=== PATIENT | female | born 1945 | race Caucasian/White ===

== ENCOUNTER → 2020-02-07 15:18 | Outpatient (BNVA) | payer MEDICARE, SELFPAY | PROVIDERS: Family Provider Nurse Practitioner; PCP Nurse Practitioner; Visit Provider Nurse Practitioner | DX: M25.511 Pain in right shoulder (principal); I10 Essential (primary) hypertension; E55.9 Vitamin D deficiency, unspecified; E78.5 Hyperlipidemia, unspecified | CPT/HCPCS: 73030; 80053; 80061; 82306; 84443 ==

== ENCOUNTER 2020-05-29 06:00 | Outpatient (RCR) | payer MEDICARE, SELFPAY | END 2020-06-22 23:59 | disposition home or self-care (01) | LOC: TPT 06:00 | PROVIDERS: PCP Nurse Practitioner; Referring Provider Nurse Practitioner; Visit Provider Nurse Practitioner | DX: M19.90 Unspecified osteoarthritis, unspecified site (principal) | CPT/HCPCS: 97110; 97140; 97161 ==

== ENCOUNTER 2020-06-23 06:00 | Outpatient (RCR) | payer MEDICARE, SELFPAY | END 2020-07-22 23:59 | disposition home or self-care (01) | LOC: TPT 06:00 | PROVIDERS: PCP Nurse Practitioner; Referring Provider Nurse Practitioner; Visit Provider Nurse Practitioner | DX: M19.90 Unspecified osteoarthritis, unspecified site (principal) | CPT/HCPCS: 97110; 97140 ==

== ENCOUNTER 2020-07-23 06:00 | Outpatient (RCR) | payer MEDICARE, SELFPAY | END 2020-08-19 23:00 | disposition home or self-care (01) | LOC: TPT 06:00 | PROVIDERS: PCP Nurse Practitioner; Referring Provider Nurse Practitioner; Visit Provider Nurse Practitioner | DX: M19.90 Unspecified osteoarthritis, unspecified site (principal) | CPT/HCPCS: 97110; 97140 ==

== ENCOUNTER → 2020-08-06 10:48 | Outpatient (BNVA) | payer MEDICARE, SELFPAY | PROVIDERS: PCP Nurse Practitioner; Visit Provider Nurse Practitioner | DX: E55.9 Vitamin D deficiency, unspecified (principal); E78.2 Mixed hyperlipidemia; I10 Essential (primary) hypertension; J30.2 Other seasonal allergic rhinitis | CPT/HCPCS: 80053; 80061; 82306; 84443; 85025 ==

== ENCOUNTER → 2020-09-16 13:05 | Outpatient (BNVA) | payer MEDICARE, SELFPAY | PROVIDERS: PCP Nurse Practitioner; Visit Provider Nurse Practitioner Family | DX: Z20.828 Contact with and (suspected) exposure to other viral communicable diseases (principal) | CPT/HCPCS: 87635 ==

== ENCOUNTER → 2020-12-03 12:08 | Outpatient (BNVA) | payer MEDICARE, SELFPAY | PROVIDERS: PCP Nurse Practitioner; Visit Provider Nurse Practitioner | DX: I10 Essential (primary) hypertension (principal); E78.2 Mixed hyperlipidemia; F41.8 Other specified anxiety disorders | CPT/HCPCS: 80048 ==

== ENCOUNTER → 2021-03-07 08:11 | Outpatient (BNVA) | payer MEDICARE, SELFPAY | PROVIDERS: PCP Nurse Practitioner; Visit Provider Nurse Practitioner | DX: E78.2 Mixed hyperlipidemia (principal); I10 Essential (primary) hypertension; E55.9 Vitamin D deficiency, unspecified | CPT/HCPCS: 80053; 80061; 82306; 84443 ==

== ENCOUNTER → 2021-10-29 08:23 | Outpatient (BNVA) | payer MEDICARE, SELFPAY | PROVIDERS: PCP Nurse Practitioner; Visit Provider Nurse Practitioner | DX: E55.9 Vitamin D deficiency, unspecified (principal); I10 Essential (primary) hypertension; J30.2 Other seasonal allergic rhinitis | CPT/HCPCS: 80053; 80061; 82306; 84443; 85025 ==

== ENCOUNTER 2021-11-19 10:32 | Outpatient (CLI) | payer MEDICARE, SELFPAY ==
--- NOTE | 2021-11-19 10:15 | US_ITS ---
WS: [id number] RENAL ULTRASOUND HISTORY: I10 - Essential (primary) hypertension COMPARISON: None available. TECHNIQUE: 2-D and color Doppler imaging of the kidney submitted. Right kidney: 9.3 cm x 4.4 cm x 4.8 cm. Normal echogenicity with no hydronephrosis or mass. Left kidney: 14.4 cm x 7.7 cm x 6.2 cm. Enlarged kidney secondary to severe hydronephrosis. There is diffuse cortical thinning suggesting thi s is a watermaster hydronephrosis. No ureteral jets are identified. Aorta: Normal. Urinary Bladder: Normally distended. US/US renal BI* [id number] IMPRESSION: 1. Severe LEFT hydroureteronephrosis. Favor this is probably a chronic hydrone phrosis due to the severe LEFT cortical thinning. Consider follow-up noncontras t CT abdomen and pelvis to evaluate etiology of the obstruction. 2. Normal RIGHT kidney.
== END 2021-11-19 10:33 | disposition home or self-care (01) ==
PROVIDERS: PCP Nurse Practitioner; Visit Provider Nurse Practitioner
DX: I10 Essential (primary) hypertension (principal); N13.30 Unspecified hydronephrosis
CPT/HCPCS: 76770

== ENCOUNTER 2021-12-17 09:29 | Outpatient (CLI) | payer MEDICARE, SELFPAY ==
[2021-12-17] MEDS: iohexol 300 mg/mL 50 mL Btl PO (10:54)
--- NOTE | 2021-12-17 11:00 | CT_ITS ---
WS: [id number] CT ABDOMEN PELVIS TECHNIQUE: Noncontrast CT of the abdomen and pelvis with coronal and sagittal reformatted images. CLINICAL INFORMATION: N13.30 - Unspecified hydronephrosis COMPARISON: Ultrasound renal November 19, 2021 DLP: 677.[address] scans at [facility] use at least one of these dose optimization techniques: automated e xposure control; mA and/or kV adjustment per patient size (includes targeted exams where dose is matc hed to clinical indication); or iterative reconstruction. FINDINGS: Lung bases are well aerated. Cholelithiasis. Moderate esophageal hiatal hernia. Advanced chronic appe aring LEFT hydronephrosis with marked cortical thinning. Only tiny remnant of residual cortical paren chyma. LEFT kidney is likely nonfunctioning. LEFT ureter is not definitely visualized but no evidence of ureterectasis. LEFT ureter is likely atretic. Small LEFT adrenal adenoma measuring 15 mm. Additional small RIGHT adrenal adenoma measuring 11 mm. N o hydronephrosis in RIGHT kidney. Normal RIGHT ureter. Noncontrast liver is normal. Cholelithiasis. Fatty atrophy of the pancreas. Noncontrast spleen is nor mal. Normal caliber abdominal aorta. Mild aortic calcification. Tiny fat-containing umbilical hernia. 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 Lumbar scoliosis convex LEFT. Advanced multilevel degenerative d isc disease with vacuum disc phenomenon. CT/CT abdomen pelvis wo con [id number] IMPRESSION: 1. Advanced chronic appearing long-standing LEFT hydronephrosis with cystic re placement of the LEFT kidney. Only a tiny amount of peripheral residual parench yma. LEFT kidney is likely nonfunctioning. LEFT ureter is not definitely visual ized although no evidence of ureterectasis. 2. Normal noncontrast RIGHT kidney. No hydronephrosis. 3. Cholelithiasis. 4. Moderate esophageal hiatal hernia. 5. Small bilateral adrenal adenomas. 6. Lumbar scoliosis with multilevel degenerative disc disease.
== END 2021-12-17 09:30 | disposition home or self-care (01) ==
LOC: RAD 09:31
PROVIDERS: PCP Nurse Practitioner; Visit Provider Nurse Practitioner
DX: N13.30 Unspecified hydronephrosis (principal); M41.86 Other forms of scoliosis, lumbar region; K44.9 Diaphragmatic hernia without obstruction or gangrene; K80.20 Calculus of gallbladder without cholecystitis without obstruction
CPT/HCPCS: 74176

== ENCOUNTER → 2022-04-08 10:00 | Outpatient (BNVA) | payer MEDICARE, SELFPAY | PROVIDERS: PCP Nurse Practitioner; Visit Provider Internal Medicine Cardiovascular Disease | DX: I10 Essential (primary) hypertension (principal); Q24.9 Congenital malformation of heart, unspecified; Z87.891 Personal history of nicotine dependence | CPT/HCPCS: 99204 ==

== ENCOUNTER → 2022-05-12 16:19 | Outpatient (BNVA) | payer MEDICARE, SELFPAY | PROVIDERS: PCP Family Medicine; Visit Provider Family Medicine | DX: Z76.89 Persons encountering health services in other specified circumstances (principal); I12.9 Hypertensive chronic kidney disease with stage 1 through stage 4 chronic kidney disease, or unspecified chronic kidney disease; N18.4 Chronic kidney disease, stage 4 (severe) | CPT/HCPCS: 80053; 80061; 81000; 82043; 82310; 82652; 83735; 83970; 84100; 84439; 84443; 85025 ==

== ENCOUNTER 2022-06-12 09:56 | Outpatient (CLI) | payer MEDICARE, SELFPAY ==
--- NOTE | 2022-06-12 10:15 | USCV_ITS ---
Peyton Lucas Age: 76 Gender: F : 1945 Exam Date: 06/12/2022 10:24 Ordering Phys: Susan Easley MD ([email or web address]) Technologist: Avelina Malik [place] [facility] [place]: Shortness of breath BP: 120 / 72 HR: 60 Rhythm: Sinus Technical Quality: Fair MEASUREMENTS (Male / Female) Normal Values 2D ECHO LV Diastolic Diameter PLAX 4.6 cm 4.2 - 5.9 / 3.9 - 5.3 cm LV Systolic Diameter PLAX 2.6 cm IVS Diastolic Thickness 1.2 cm 0.6 - 1.0 / 0.6 - 0.9 cm IVS Systolic Thickness 1.5 cm LVPW Diastolic Thickness 1.1 cm 0.6 - 1.0 / 0.6 - 0.9 cm LVPW Systolic Thickness 2.3 cm LVOT Diameter 2.1 cm LV Ejection Fraction 2D Teich 73.2 % LV Ejection Fraction MOD 2C 26.1 % LV Ejection Fraction 2C AL 27.0 % LA Diameter 2.6 cm LA Width 3.9 cm LA Height 4.8 cm RA Width 3.4 cm RA Height 4.2 cm Aorta at Sinotubular Diameter 3.0 cm IVC Diameter 1.3 cm M-MODE MV E Point Septal Separation 0.8 cm DOPPLER AV Peak Velocity 135.0 cm/s LVOT Peak Velocity 94.0 cm/s AV Area Cont Eq vti 2.7 cm squared AV Area Cont Eq pk 2.3 cm squared MV Peak Velocity 121.0 cm/s MV Area PHT 3.0 cm squared Mitral E to A Ratio 0.7 MV E' Velocity 39.5 cm/s Mitral E to MV E' Ratio 7.9 Mitral E to LV E' Lateral Ratio 6.7 Mitral E to LV E' Septal Ratio 9.6 TR Peak Velocity 178.3 cm/s TR Peak Gradient 12.7 mmHg Right Atrial Pressure 3.0 mmHg Pulmonary Artery Systolic Pressu 15.7 mmHg PV Peak Velocity 181.0 cm/s RV Acceleration Time 0.1 s RV Ejection Time 0.4 s RV AcT/ET 0.2 FINDINGS Left Ventricle Normal left ventricular size, systolic function and wall thickness, with no regional wall motion abnormalities. Left ventricular ejection fraction is estimated at 60 %. Grade I diastolic dysfunction (abnormal relaxation filling pattern), normal to mildly elevated filling pressures. Abnormal septal motion. Right Ventricle Normal right ventricular size and systolic function. Right ventricular systolic pressure 23 mmHg. Right Atrium Normal right atrial size. Aneurysmal interatrial septum. Left Atrium Normal left atrial size. Mitral Valve Mild mitral annular calcification. Mildly thickened mitral valve. No mitral valve stenosis. Aortic Valve Structurally normal trileaflet aortic valve. No aortic valve stenosis. Moderate aortic valve regurgitation. Tricuspid Valve Structurally normal tricuspid valve. No tricuspid valve stenosis. Trace to mild tricuspid valve regurgitation. Pulmonic Valve Structurally normal pulmonic valve. No pulmonary valve stenosis. Mild pulmonary valve regurgitation. Pericardium No pericardial effusion. Aorta Normal size aortic root and proximal ascending aorta. IVC Normal IVC dimension with >50% respiratory change of the inferior vena cava. CONCLUSIONS 1. Normal left ventricular size, systolic function and wall thickness, with no regional wall motion abnormalities. Left ventricular ejection fraction is estimated at 60 %. Grade I diastolic dysfunction (abnormal relaxation filling pattern), normal to mildly elevated filling pressures. 2. Normal right ventricular size and systolic function 3. Moderate aortic valve regurgitation. 4. No prior similar studies to compare. Susan Easley MD (Electronically Signed) Final Date: 16 June 2022 13:04 S
== END 2022-06-12 09:57 | disposition home or self-care (01) ==
PROVIDERS: PCP Family Medicine; Visit Provider Internal Medicine Cardiovascular Disease
DX: R06.02 Shortness of breath (principal); I35.1 Nonrheumatic aortic (valve) insufficiency
CPT/HCPCS: 93306

== ENCOUNTER 2022-06-12 10:06 | Outpatient (CLI) | payer MEDICARE, SELFPAY ==
--- NOTE | 2022-06-12 10:27 | XR_ITS ---
WS: [id number] Cervical spine, 3 views, 06/12/2022 Clinical Data: Neck pain, decreased ROM Comparison: None. Findings: No compression fractures are seen. There is disc narrowing at C4-C5, C5-C6, C6-C7 and C7-T1 . There is accompanying osteoarthritic spurring from C4 through T1. There is no prevertebral soft tis lito swelling. The odontoid is unremarkable. The lung apices are normal. There is soft tissue calcific ation of the level of both carotid artery bifurcations. XR/XR cervical spine 3V* [id number] Impression: Multilevel degenerative disc narrowing C4-5 to C7-T1 with osteoarthritic spurri ng.
== END 2022-06-12 10:07 | disposition home or self-care (01) ==
PROVIDERS: PCP Family Medicine; Visit Provider Family Medicine
DX: M54.2 Cervicalgia (principal); R29.898 Other symptoms and signs involving the musculoskeletal system; M48.02 Spinal stenosis, cervical region
CPT/HCPCS: 72040

== ENCOUNTER → 2022-07-10 11:39 | Outpatient (BNVA) | payer MEDICARE, SELFPAY | PROVIDERS: PCP Family Medicine; Visit Provider Family Medicine | DX: R19.7 Diarrhea, unspecified (principal) | CPT/HCPCS: 82270; 87177; 87209; 87493; 87506 ==

== ENCOUNTER 2022-08-17 11:19 | Emergency (ER) | payer MEDICARE, SELFPAY ==
[2022-08-17] VITALS (37 sets, daily range): BP systolic 102–134; BP diastolic 62–68; PULSE 67–84; RESP 14–18; TEMP 36.7; O2SAT 94–100; BMI 28.5
--- NOTE | 2022-08-17 14:20 | USCV_ITS ---
Peyton Lucas Age: 76 Gender: F : 1945 Exam Date: 08/17/2022 14:42 Ordering Phys: Robinson Murray MD Technologist: LUANA [place] [facility] [place]ication: RLE PAIN AND SWELLING HISTORY: Lower extremity swelling. Lower extremity pain. PROCEDURES: Venous duplex imaging was performed in only the right lower extremity. The following venous structures were evaluated: common femoral vein, profunda vein, proximal portion of the greater saphenous vein, superficial femoral vein, and the popliteal vein. In addition, the posterior tibial and peroneal trunk were evaluated. Serial compression, augmentation maneuvers, and spectral Doppler flow evaluation were performed. FINDINGS: No evidence of DVT seen in any vessel visualized at this time. CONCLUSIONS No evidence of right lower extremity DVT. Complex popliteal cyst measuring 2.0 x 2.4 x 5.2cm Maxwell Palacios MD (Electronically Signed) Final Date: 17 August 2022 17:11 S
--- NOTE | 2022-08-17 14:20 | XRR_ITS ---
PROCEDURE INFORMATION: Exam: XR Right Knee Exam date and time: 08/17/2022 2:34 PM Age: 76 years old Clinical indication: Pain; Knee; Right; Additional info: Swelling, pain TECHNIQUE: Imaging protocol: Radiologic exam of the Right knee. Views: 3 views. COMPARISON: No relevant prior studies available. FINDINGS: Bones/joints: Severe tricompartmental degenerative changes. No acute fracture. No dislocation. Soft tissues: Normal. XR/XR knee RT 3V* [id number] IMPRESSION: No acute findings.
--- NOTE | 2022-08-17 14:22 | W.ED.EXTPRO ---
HPI - Extremity Problem General: Chief complaint: Extremity Injury, Lower Stated complaint: Right leg swelling Time Seen by Provider: 08/17/22 13:41 History of Present Illness: Patient comes in with right knee and lower leg swelling and pain that she states started 3 days ago. States no trauma. States she does have degeneration in that knee joint and knows she needs replacement. On physical exam she has swelling of her right knee with no overlying heat or significant heat to palpation. Right leg is neurovascularly intact with palpable pulses. She does have some swelling of that right lower leg when compared to the left. Associated symptoms: Deny chest pain, fever(s) or rash Review of Systems Const: Denies: fever(s) or body aches Eyes: Denies: change in vision or blurry vision ENMT: Denies: throat pain or odynophagia Card: Denies: chest pain or palpitations Resp: Denies: dyspnea or productive cough GI: Denies: abdominal pain, nausea or vomiting : Denies: flank pain or dysuria Musc: Denies: neck pain or back pain Skin/Breast: Denies: rash or pruritus Neuro: Denies: headache(s) or numbness in extremities Psych: Denies: anxiety or change in appetite Endo: Denies: polyuria or excessive sweating PFSH ED PFSH: Medical History Esophageal hiatal hernia Heart murmur Hydronephrosis of left kidney Hypertension Mixed hyperlipidemia Osteoarthritis (arthritis due to wear and tear of joints) Sinusitis, bacterial Vitamin D deficiency Surgical History History of left knee replacement History of right hip replacement S/P coronary angiogram S/P heart valve repair Family History Mother Heart disease CHF (congestive heart failure) Brother Myocardial infarction Other Hypertension Social History Smoking and tobacco status: never smoked Second hand smoke exposure: No Smoking risk assessment/counseling performed?: No Alcohol intake: never Desire information about alcohol rehabilitation?: No Counseling given: No Desire information about substance/drug rehabilitation?: No Counseling given: No Adopted: No Caregiver/support person: No Lives independently: Yes Household members: none Housing: House Marital status: service: No Current occupational status: employed Current occupation: [employer] History of recent travel: No Current gender identity: Female Female Reproductive History: Spontaneous abortions: No Physical Exam Const: COMMON NORMALS: no acute distress, patient oriented x3, healthy appearing and alert HENMT: COMMON NORMALS: normocephalic and atraumatic HEAD & SCALP: normocephalic and atraumatic Eye: COMMON NORMALS: Equal, round and reactive pupils present and EOMs intact bilaterally PUPIL: Yes Equal, round and reactive pupils present Neck/C-Spine: COMMON NORMALS: full ROM and supple Resp: COMMON NORMALS: normal respiratory effort, No retractions and No use of accessory muscles Cardio: COMMON NORMALS: regular rate and regular rhythm RATE: regular rate RHYTHM: regular rhythm GI: COMMON NORMALS: Normal to inspection, nondistended, normoactive bowel sounds present, Soft to palpation and non-tender PALPATION: Yes Soft to palpation Back/Pelvis: COMMON NORMALS: thoracic and lumbar spine normal to inspection and no thoracic nor lumbar tenderness Extremity: OTHER: swelling of her right knee with no overlying heat or significant heat to palpation. Right leg is neurovascularly intact with palpable pulses. She does have some swelling of that right lower leg when compared to the left. Neuro: COMMON NORMALS: patient oriented x3 SENSORIUM/ORIENTATION: Yes alert Psych: COMMON NORMALS: mental status grossly normal and cooperative Skin: COMMON NORMALS: no rashes or lesions noted and no wounds GENERAL SKIN EXAM: no rashes or lesions noted Course Vital Signs: Vital signs: Vital Signs Temperature 98.0 F 08/17/22 12:36 Pulse Rate 68 08/17/22 13:46 Respiratory Rate 14 08/17/22 12:36 Blood Pressure 102/62 08/17/22 13:45 Pulse Oximetry 99 08/17/22 12:36 Oxygen Delivery Me thod 08/17/22 12:36 MDM - Extremity (Nontraumatic) Medical Decision Making Patient comes in with right knee and lower leg swelling and pain that she states started 3 days ago. States no trauma. States she does have degeneration in that knee joint and knows she needs replacement. On physical exam she has swelling of her right knee with no overlying heat or significant heat to palpation. Right leg is neurovascularly intact with palpable pulses. She does have some swelling of that right lower leg when compared to the left. Will check x-ray, ultrasound, and reassess. On reassessment I talked to the patient about the test results. Will encourage her to elevate, ice, and use Tylenol for the knee. Will discharge home at this time with precautions to return for worsening or changing symptoms. Lab Data Radiology Impressions Knee X-Ray 08/17/22 14:20 IMPRESSION: No acute findings. Discharge Plan Discharge Patient Disposition: Home Clinical Impression: Mckeon cyst Condition: Stable Prescriptions: No Action magnesium oxide 400 mg (241.3 mg magnesium) tablet 800 mg PO DAILY famotidine 20 mg tablet 20 mg PO BID PRN fenofibrate nanocrystallized [Tricor] 145 mg tablet 145 mg PO DAILY Qty: 90 0RF calcitriol 0.25 mcg capsule 0.25 mcg PO DAILY valsartan 320 mg tablet 160 mg PO DAILY tumeric PO coenzyme Q10 [Co Q-10] 100 mg capsule 100 mg PO DAILY fluticasone propionate [Flonase Allergy Relief] 50 mcg/actuation spray,suspension 2 spray INTRANASAL DAILY PRN Rx Instructions: administer into each nostril amlodipine 5 mg tablet 7.5 mg PO DAILY Qty: 135 2RF Folbee Plus 5 mg tablet 1 tab PO DAILY Qty: 90 1RF ergocalciferol (vitamin D2) 1,250 mcg (50,000 unit) capsule 50,000 unit PO .COMPLEX Qty: 6 0RF Rx Instructions: 50,000 units PO TAKE ON THE 1ST AND 16TH; cyanocobalamin (vitamin B-12) 1,000 mcg capsule 1,000 mcg PO DAILY Qty: 90 0RF diphenoxylate-atropine 2.5-0.025 mg tablet 2 tab PO Q8H Qty: 90 0RF Discharge Orders: Discharge ED (Routine); Ordered 08/17/22 Ordered By: Robinson Murray Referrals: Geeta Townsend MD [Primary Care Provider] - Patient Instructions: Mckeon Cyst (ED) Coding Level of Care Code ED [employer] [employer] for Chg Fwd Exam Comprehensive
== END 2022-08-17 16:38 | disposition home or self-care (01) ==
PROVIDERS: Emergency Provider Emergency Medicine; PCP Family Medicine
DX: M71.21 Synovial cyst of popliteal space [Baker], right knee (principal); I10 Essential (primary) hypertension; E78.2 Mixed hyperlipidemia
CPT/HCPCS: 73562; 93971; 99283

== ENCOUNTER → 2022-09-30 11:06 | Outpatient (BNVA) | payer MEDICARE, SELFPAY | PROVIDERS: PCP Family Medicine; Visit Provider Family Medicine | DX: R19.7 Diarrhea, unspecified (principal) | CPT/HCPCS: 82150; 83690 ==

== ENCOUNTER → 2022-10-08 11:01 | Outpatient (BNVA) | payer MEDICARE, SELFPAY | PROVIDERS: PCP Family Medicine; Visit Provider Internal Medicine Cardiovascular Disease | DX: Q24.9 Congenital malformation of heart, unspecified (principal); I10 Essential (primary) hypertension; E78.2 Mixed hyperlipidemia; K44.9 Diaphragmatic hernia without obstruction or gangrene | CPT/HCPCS: 99214; Q3014 ==

== ENCOUNTER → 2022-12-23 12:00 | Outpatient (BNVA) | payer MEDICARE, SELFPAY | PROVIDERS: PCP Family Medicine; Visit Provider Family Medicine | DX: F41.8 Other specified anxiety disorders (principal); Z13.6 Encounter for screening for cardiovascular disorders; K52.832 Lymphocytic colitis; Q24.9 Congenital malformation of heart, unspecified; I12.9 Hypertensive chronic kidney disease with stage 1 through stage 4 chronic kidney disease, or unspecified chronic kidney disease; N18.4 Chronic kidney disease, stage 4 (severe) | CPT/HCPCS: 80053; 80061; 84443; 85025; 85610 ==

== ENCOUNTER 2023-01-19 12:22 | Outpatient (CLI) | payer MEDICARE, SELFPAY ==
--- NOTE | 2023-01-19 12:40 | MM_ITS ---
WS: [id number] BILATERAL 3D TOMOSYNTHESIS DIGITAL SCREENING MAMMOGRAPHY WITH CAD CLINICAL INFORMATION: SCREEN HISTORY: Screening mammogram. No current complaints. COMPARISON: 2017 TECHNIQUE: Bilateral CC and MLO views. FINDINGS: Scattered fibroglandular densities bilaterally. No suspicious focal mass, asymmetry, calcifications, or architectural distortion. No evidence of malignancy. Punctate and lucent centered calcifications. Vascular calcifications. MM/[place] [id number] IMPRESSION: BI-RADS: 2-Benign FOLLOW UP: 1 Year Follow-up Recommend return to annual screening mammography.
== END 2023-01-19 12:23 | disposition home or self-care (01) ==
LOC: RAD 12:26
PROVIDERS: PCP Family Medicine; Visit Provider Family Medicine
DX: Z12.31 Encounter for screening mammogram for malignant neoplasm of breast (principal)
CPT/HCPCS: 77063; 77067

== ENCOUNTER → 2023-03-08 12:05 | Outpatient (BNVA) | payer MEDICARE, SELFPAY | PROVIDERS: PCP Family Medicine; Visit Provider Internal Medicine Gastroenterology | DX: K52.9 Noninfective gastroenteritis and colitis, unspecified (principal); K52.832 Lymphocytic colitis | CPT/HCPCS: 82784; 83516 ==

== ENCOUNTER 2023-04-16 14:48 | Outpatient (CLI) | payer MEDICARE, SELFPAY ==
--- NOTE | 2023-04-16 15:04 | US_ITS ---
WS: [id number] RENAL ULTRASOUND HISTORY: STAGE 3B CHRONIC KIDNEY DZ COMPARISON: 11/19/2021 TECHNIQUE: 2-D and color Doppler imaging of the kidney submitted. Right kidney: 11.5 cm x 5.1 cm x 5.1 cm. Cortex: 1.5 cm Normal echogenicity with no hydronephrosis or mass. Left kidney: 13.9 cm x 9.2 cm x 7.7 cm. Cortex: Marked thinning Abnormal LEFT kidney. LEFT renal pelvis is markedly dilated with thinning of the cortex. Normal renal structures not identified. Similar findings were noted on the prior study. Aorta: Normal. Urinary Bladder: Nondistended. Patient voided just prior to this exam. IMPRESSION: 1. Chronic severe LEFT hydronephrosis. Normal LEFT kidney is not identified. 2. Normal RIGHT kidney.
== END 2023-04-16 14:49 | disposition home or self-care (01) ==
PROVIDERS: PCP Family Medicine; Visit Provider Internal Medicine Nephrology
DX: N18.32 Chronic kidney disease, stage 3b (principal); N13.30 Unspecified hydronephrosis
CPT/HCPCS: 76770

== ENCOUNTER → 2023-06-03 15:21 | Outpatient (BNVA) | payer MEDICARE, SELFPAY | PROVIDERS: PCP Family Medicine; Referring Provider Nurse Practitioner Family; Visit Provider Dermatology | DX: L82.0 Inflamed seborrheic keratosis (principal); D18.01 Hemangioma of skin and subcutaneous tissue; L81.4 Other melanin hyperpigmentation; D48.5 Neoplasm of uncertain behavior of skin | CPT/HCPCS: 11102; 17110; 99203 ==

== ENCOUNTER → 2023-07-08 13:58 | Outpatient (BNVA) | payer MEDICARE, SELFPAY | PROVIDERS: PCP Family Medicine; Visit Provider Internal Medicine Cardiovascular Disease | DX: I10 Essential (primary) hypertension (principal); Q24.9 Congenital malformation of heart, unspecified | CPT/HCPCS: 99214 ==

== ENCOUNTER 2023-08-21 15:23 | Emergency (ER) | payer OTHER, MEDICARE, SELFPAY ==
[2023-08-21 15:25] VITALS: BP 174/81; PULSE 68; RESP 18; TEMP 36.6; O2SAT 98; BMI 32.0
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
[2023-08-21 16:16] LABS: Basophils % 0.4 %; Eosinophils # 0.1 10^3/uL (0.0-0.8); Eosinophils % 1.9 %; Hematocrit 35.7 % (36-47); Lymphocytes % 44.9 %; Mean Corpuscular HGB Conc 32.5 g/dL (30-55); Mean Corpuscular Hemoglobin 28.9 pg (27-33); Mean Platelet Volume 9.5 fL (7.4-10.4); Monocytes # 0.7 10^3/uL (0.2-0.9); Neutrophils # 2.87 10^3/uL (1.8-7.7); Neutrophils % 42.7 %; Nucleated Red Blood Cells % 0 %; Platelet Count 300 10^3/cmm (157-399); Red Blood Count 4.01 10^6/uL (3.85-5.65); Red Cell Distribution Width 13.4 % (12.1-15.1); White Blood Count 6.73 10^3/uL (3.29-11.43)
[2023-08-21 16:31] LABS: Alanine Aminotransferase 18 U/L (0-33); Albumin Level 4.3 g/dL (3.5-5.2); Alkaline Phosphatase 80 U/L (35-105); Anion Gap 16.2 (5-19); Aspartate Amino Transferase 30 U/L (0-32); Blood Urea Nitrogen 31 mg/dL (8-23); Calcium 10.6 mg/dL (8.5-10.5); Carbon Dioxide 21 mmol/L (22-29); Chloride 103 mmol/L (98-107); Globulin 2.8 g/dL (1.3-4.6); Glucose 102 mg/dL (65-115); Osmolality Calculated 289 mOsm/kg (285-295); Potassium 4.2 mmol/L (3.5-5.1); Sodium 136 mmol/L (136-145); Total Bilirubin 0.3 mg/dL (0.15-1.2); Total Protein 7.1 g/dL (6.6-8.7)
[2023-08-21 17:17] LABS: Add Urine Microscopic? YES; Bacteria Urine TRACE /hpf; Bilirubin Urine Neg (Negative); Blood Urine Neg (Negative); Glucose Urine UA Norm (Normal); Ketones Urine Negative (Negative); Leukocyte Esterase Urine Trace (Negative); Nitrate Urine Negative (Negative); Protein Urine Neg (Negative); Squamous Epithelial Cell Urine 0-4 /hpf (0-5); Urine Appearance Clear (CLEAR); Urine Color Yellow (Yellow); Urobilinogen Urine Norm (Negative); pH Urine 6.5 (5-7)
[2023-08-21 17:18] LABS: Add Urine Culture? No
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
--- NOTE | 2023-08-23 08:25 | DCPLANNER ---
Message was sent to ortho on 08/23 at 0879. Clinic to contact patient
== END 2023-08-21 18:58 | disposition home or self-care (01) ==
PROVIDERS: Family Medicine; Emergency Provider Emergency Medicine; PCP Nurse Practitioner
DX: S82.141A Displaced bicondylar fracture of right tibia, initial encounter for closed fracture (principal); I10 Essential (primary) hypertension; E78.2 Mixed hyperlipidemia; Z96.652 Presence of left artificial knee joint; Z96.641 Presence of right artificial hip joint; V89.2XXA Person injured in unspecified motor-vehicle accident, traffic, initial encounter
CPT/HCPCS: 29530; 70450; 70486; 72125; 73130; 73562; 73700; 80053; 81001; 85025; 99284

== ENCOUNTER 2023-08-27 06:00 | Outpatient (CLI) | payer MEDICARE, SELFPAY | END 2023-08-27 06:01 | disposition home or self-care (01) | LOC: SPT 09-02 14:05 | PROVIDERS: PCP Nurse Practitioner; Visit Provider Student in an Organized Health Care Education/Training Program | DX: Z46.89 Encounter for fitting and adjustment of other specified devices (principal); S82.114D Nondisplaced fracture of right tibial spine, subsequent encounter for closed fracture with routine healing; X58.XXXD Exposure to other specified factors, subsequent encounter | CPT/HCPCS: 27530; 97760; 99204; L1832 ==

== ENCOUNTER → 2023-08-27 09:09 | Outpatient (BNVA) | payer MEDICARE, SELFPAY | PROVIDERS: PCP Nurse Practitioner; Visit Provider Student in an Organized Health Care Education/Training Program | DX: S82.141A Displaced bicondylar fracture of right tibia, initial encounter for closed fracture; V89.2XXA Person injured in unspecified motor-vehicle accident, traffic, initial encounter | CPT/HCPCS: 73562 ==

== ENCOUNTER → 2023-09-17 10:10 | Outpatient (BNVA) | payer MEDICARE, SELFPAY | PROVIDERS: PCP Family Medicine; Visit Provider Student in an Organized Health Care Education/Training Program | DX: S82.141A Displaced bicondylar fracture of right tibia, initial encounter for closed fracture (principal); X58.XXXA Exposure to other specified factors, initial encounter; M17.11 Unilateral primary osteoarthritis, right knee | CPT/HCPCS: 73562; 99213 ==

== ENCOUNTER → 2023-10-07 13:12 | Outpatient (BNVA) | payer MEDICARE, SELFPAY | PROVIDERS: PCP Family Medicine; Visit Provider Physician Assistant | DX: S82.141A Displaced bicondylar fracture of right tibia, initial encounter for closed fracture (principal); X58.XXXA Exposure to other specified factors, initial encounter; M17.11 Unilateral primary osteoarthritis, right knee | CPT/HCPCS: 73590; 99213 ==

== ENCOUNTER → 2023-10-21 10:59 | Outpatient (BNVA) | payer MEDICARE, SELFPAY | PROVIDERS: PCP Family Medicine; Visit Provider Physician Assistant | DX: S82.141A Displaced bicondylar fracture of right tibia, initial encounter for closed fracture (principal); X58.XXXA Exposure to other specified factors, initial encounter; M17.11 Unilateral primary osteoarthritis, right knee | CPT/HCPCS: 73560; 73565; 73590; 99213 ==

== ENCOUNTER 2023-10-25 12:44 | Outpatient (CLI) | payer MEDICARE, SELFPAY ==
--- NOTE | 2023-10-25 13:00 | US_ITS ---
WS: [id number] RENAL ULTRASOUND HISTORY: CHRONIC RENAL FAILURE COMPARISON: 04/16/2023 TECHNIQUE: 2-D and color Doppler imaging of the kidney submitted. Right kidney: 8.6 cm x 4.2 cm x 5.0 cm. Cortex: 1.0 cm Mild atrophy with no hydronephrosis. No solid mass. Left kidney: 9.2 cm x 7.7 cm x 4.6 cm. Cortex: Not visible. Massive dilatation of the renal pelvis. Calyceal dilatation. Longstanding chronic hydronephrosis has been previously described. Progressive atrophy of the renal cortex. It is very difficult to visualize any normal renal cortex. Aorta: Not well visualized. Urinary Bladder: Not visualized. IMPRESSION: 1. Chronic severe LEFT hydronephrosis. Uncertain etiology but noted on prior studies. 2. Low normal size RIGHT kidney. No hydronephrosis.
== END 2023-10-25 12:45 | disposition home or self-care (01) ==
LOC: RAD 12:44
PROVIDERS: PCP Family Medicine; Visit Provider Registered Nurse
DX: N13.39 Other hydronephrosis (principal)
CPT/HCPCS: 76770

== ENCOUNTER → 2023-11-05 07:28 | Outpatient (BNVA) | payer MEDICARE, SELFPAY | PROVIDERS: PCP Family Medicine; Visit Provider Physician Assistant | DX: M17.11 Unilateral primary osteoarthritis, right knee (principal); S82.141D Displaced bicondylar fracture of right tibia, subsequent encounter for closed fracture with routine healing; X58.XXXD Exposure to other specified factors, subsequent encounter | CPT/HCPCS: 73560; 73565; 99213 ==

== ENCOUNTER → 2024-02-01 16:00 | Outpatient (BNVA) | payer MEDICARE, SELFPAY | PROVIDERS: PCP Family Medicine; Visit Provider Family Medicine | DX: R53.83 Other fatigue; R35.0 Frequency of micturition; E55.9 Vitamin D deficiency, unspecified; Z13.1 Encounter for screening for diabetes mellitus | CPT/HCPCS: 80053; 82306; 82607; 83036; 84443; 85025 ==

== ENCOUNTER → 2024-04-12 12:30 | Outpatient (BNVA) | payer MEDICARE, SELFPAY | PROVIDERS: PCP Family Medicine; Visit Provider Internal Medicine | DX: I35.1 Nonrheumatic aortic (valve) insufficiency (principal); I10 Essential (primary) hypertension; E78.2 Mixed hyperlipidemia; K44.9 Diaphragmatic hernia without obstruction or gangrene; Q24.9 Congenital malformation of heart, unspecified | CPT/HCPCS: 99214 ==

== ENCOUNTER 2024-05-25 13:48 | Outpatient (CLI) | payer MEDICARE, SELFPAY ==
--- NOTE | 2024-05-25 14:00 | USCV_ITS ---
Peyton Lucas Age: 78 Gender: F : 1945 Exam Date: 05/25/2024 14:09 Ordering Phys: Murtaza Claire M.D ([email or web address]) Technologist: NITA [place] [facility] [place]: [place] recheck BP: / HR: 126 Rhythm: Sinus Technical Quality: Adequate MEASUREMENTS (Male / Female) Normal Values 2D ECHO LV Diastolic Diameter PLAX 3.0 cm 4.2 - 5.9 / 3.9 - 5.3 cm LV Systolic Diameter PLAX 3.3 cm IVS Diastolic Thickness 1.1 cm 0.6 - 1.0 / 0.6 - 0.9 cm IVS Systolic Thickness 1.4 cm LVPW Diastolic Thickness 2.2 cm 0.6 - 1.0 / 0.6 - 0.9 cm LVPW Systolic Thickness 1.4 cm LVOT Diameter 2.0 cm LV Ejection Fraction 2D Teich 26.9 % LV Ejection Fraction MOD 4C 48.4 % LV Ejection Fraction MOD 2C 51.0 % LV Ejection Fraction 2C AL 50.2 % LA Diameter 2.6 cm RA Systolic Volume 4C AL 34.9 ml RA Systolic Volume 4C MOD 32.8 ml LA Sys Volume AL 42.3 cm cubed LA Sys Volume Index AL 22.3 cm cubed/m squared Aorta at Sinotubular Diameter 2.9 cm M-MODE LA Ao Ratio MM 1.4 AV Cusp Separation MM 2.0 cm DOPPLER AV Peak Velocity 311.0 cm/s LVOT Peak Velocity 99.0 cm/s AV Area Cont Eq vti 2.2 cm squared AV Area Cont Eq pk 1.1 cm squared MV Area PHT 3.0 cm squared Mitral E to A Ratio 0.8 TV Peak Velocity 181.5 cm/s TR Peak Velocity 230.0 cm/s TR Peak Gradient 21.2 mmHg TR Mean Velocity 147.0 cm/s TR Mean Gradient 10.6 mmHg TR Velocity Time Integral 68.1 cm Right Atrial Pressure 3.0 mmHg Pulmonary Artery Systolic Pressu 24.2 mmHg PV Peak Velocity 172.0 cm/s FINDINGS Left Ventricle Normal left ventricular cavity size. Normal left ventricular systolic function. Left ventricular ejection fraction is estimated at 60 %. Grade I/IV diastolic dysfunction (abnormal relaxation filling pattern), normal to mildly elevated filling pressures. Right Ventricle The right ventricle is normal in size and function. Right Atrium The right atrium is normal in size. Left Atrium The left atrium is normal in size. Mitral Valve Moderately thickened mitral valve. No mitral valve stenosis. Mild mitral valve regurgitation. Aortic Valve Moderate aortic valve calcification. No aortic valve stenosis. Mild aortic valve regurgitation. Tricuspid Valve Trace tricuspid valve regurgitation. Pulmonic Valve [id number] pulmonary valve regurgitation. Pericardium Normal pericardium without effusion. Aorta Normal ascending aorta dimension. IVC The inferior vena cava appears normal. CONCLUSIONS Normal left ventricular cavity size. Normal left ventricular systolic function. Left ventricular ejection fraction is estimated at 60 %. Grade I/IV diastolic dysfunction (abnormal relaxation filling pattern), normal to mildly elevated filling pressures. Moderately thickened mitral valve. No mitral valve stenosis. Mild mitral valve regurgitation. Moderate aortic valve calcification. No aortic valve stenosis. Mild aortic valve regurgitation. There is no pericardial effusion. Right atrial pressure is around 5 mm of mercury. Demetris Paige MD (Electronically Signed) Final Date: 27 May 2024 14:45 S
== END 2024-05-25 13:49 | disposition home or self-care (01) ==
PROVIDERS: PCP Family Medicine; Visit Provider Internal Medicine
DX: I37.1 Nonrheumatic pulmonary valve insufficiency (principal); I50.30 Unspecified diastolic (congestive) heart failure; I34.81 Nonrheumatic mitral (valve) annulus calcification
CPT/HCPCS: 93306

== ENCOUNTER → 2025-01-10 14:55 | Outpatient (BNVA) | payer MEDICARE, SELFPAY | PROVIDERS: Family Provider Nurse Practitioner Family; PCP Nurse Practitioner Family; Visit Provider Internal Medicine | DX: I10 Essential (primary) hypertension (principal); E78.2 Mixed hyperlipidemia; K44.9 Diaphragmatic hernia without obstruction or gangrene; Q24.9 Congenital malformation of heart, unspecified | CPT/HCPCS: 99213 ==

== ENCOUNTER → 2025-03-09 10:43 | Outpatient (BNVA) | payer MEDICARE, SELFPAY | PROVIDERS: PCP Nurse Practitioner Family; Visit Provider Nurse Practitioner Family | DX: I10 Essential (primary) hypertension (principal); R00.1 Bradycardia, unspecified; E55.9 Vitamin D deficiency, unspecified; N18.4 Chronic kidney disease, stage 4 (severe); I12.9 Hypertensive chronic kidney disease with stage 1 through stage 4 chronic kidney disease, or unspecified chronic kidney disease | CPT/HCPCS: 80053; 80061; 82306; 82607; 83735; 84439; 84443; 85025 ==

== ENCOUNTER → 2025-06-29 09:45 | Outpatient (BNVA) | payer MEDICARE, SELFPAY | PROVIDERS: PCP Nurse Practitioner Family; Visit Provider Dermatology | DX: K13.0 Diseases of lips (principal); B37.0 Candidal stomatitis; L30.0 Nummular dermatitis; L82.1 Other seborrheic keratosis; D22.39 Melanocytic nevi of other parts of face | CPT/HCPCS: 17000; 99214 ==

== ENCOUNTER → 2025-07-04 07:56 | Outpatient (BNVA) | payer MEDICARE, SELFPAY | PROVIDERS: PCP Nurse Practitioner Family; Visit Provider Nurse Practitioner Family | DX: R30.0 Dysuria (principal); F41.8 Other specified anxiety disorders; I12.9 Hypertensive chronic kidney disease with stage 1 through stage 4 chronic kidney disease, or unspecified chronic kidney disease; N18.4 Chronic kidney disease, stage 4 (severe); E55.9 Vitamin D deficiency, unspecified | CPT/HCPCS: 80053; 80061; 81000; 82306; 84443; 85025 ==